=== PATIENT | male | born 1985 | race Caucasian/White ===

== ENCOUNTER 2017-03-26 19:13 | Emergency (ER) | payer OTHER ==
[~2017-03-26] VITALS: Ht 180.3 cm; Wt 79.4 kg
[2017-03-26 19:42] LABS: *BILIRUBIN,URIN NEGATIVE (NEGATIVE); *BLOOD, URINE NEGATIVE (NEGATIVE); *CLARITY,URINE CLEAR (CLEAR); *COLOR,URINE DARK YELLOW (YELLOW); *KETONES,URINE NEGATIVE (NEGATIVE); *PROTEIN,URINE NEGATIVE (NEGATIVE); *UROBILINOGEN,URINE 0.2 E.U./dl (NORMAL); LEUKOCYTE ESTERASE ,URINE NEGATIVE (NEGATIVE); NITRITE, URINE NEGATIVE (NEGATIVE); PH,URINE 5.5 (5.0-8.0); UGLUCOSE NEGATIVE (NEGATIVE)
[2017-03-26 19:52] LABS: MUCUS,URINE MANY /LPF (0-FEW)
[2017-03-26] MEDS: KETOROLAC TROMETHAMINE 30 MG INJ IM ONE (19:57)
[2017-03-26] MEDS ORDERED: KETOROLAC TROMETHAMINE 30 MG INJ ONE (20:04)
[2017-03-26] MEDS: HYDROCODONE/APAP 5-325MG TABLET PO ONE (20:49)
--- NOTE | 2017-03-26 20:51 | NUR ---
Patient discharged to home in stable conditon. Written and verbal after care instructions given. Patient verbalizes understanding of instructions.
[2017-03-26] MEDS ORDERED: HYDROCODONE/APAP 5-325MG TABLET ONE (20:58)
== END 2017-03-26 20:52 | disposition home or self-care (01) ==
LOC: ER 19:14
DX: M54.5 Low back pain (principal)
CPT/HCPCS: A4663; J1885